=== PATIENT | male | born 1950 | race American Indian/Alaskan Native ===

== ENCOUNTER 2017-08-15 16:47 | Emergency (ER) | payer MEDICARE ==
[2017-08-15 17:09] VITALS: BP 152/80
--- NOTE | 2017-08-15 18:46 | Emergency Department Report ---
HPI - General Chief Complaint: Wound/Laceration Time Seen by Provider: 08/15/17 18:42 - HPI HPI: right third finger injury ED Past Medical Hx - Past Medical History Hx Hypertension: Yes - Surgical History Additional Surgical History: hernia repair,peptic ulcer - Social History Smoking Status: Never Smoker Substance Use Type: Alcohol - Medications Home Medications: Home Medications Medication Instructions Recorded Confirmed Last Taken Type Cephalexin [Keflex] 500 mg PO Q12HR #14 cap 08/15/17 Unknown Rx Mupirocin [Bactroban 2% OINT] 1 applic TP TID #1 tube 08/15/17 Unknown Rx ED Review of Systems ROS: Stated complaint: LAC.RT MIDDLE FINGER Other details as noted in HPI Physical Exam - Physical Exam Vital Signs: Vital Signs 08/15/17 17:07 Temperature 98.7 F Pulse Rate 53 L Respiratory 18 Rate Blood Pressure 152/80 O2 Sat by Pulse 99 Oximetry ED Course Vital Signs 08/15/17 17:07 Temperature 98.7 F Pulse Rate 53 L Respiratory 18 Rate Blood Pressure 152/80 O2 Sat by Pulse 99 Oximetry Critical care attestation.: If time is entered above; I have spent that time in minutes in the direct care of this critically ill patient, excluding procedure time. ED Disposition Clinical Impression: Finger laceration Qualifiers: Encounter type: initial encounter Finger: middle finger Damage to nail status: without damage Foreign body presence: without foreign body Laterality: right Qualified Code(s): S61.212A - Laceration without foreign body of right middle finger without damage to nail, initial encounter Disposition: DC-01 TO HOME OR SELFCARE Is pt being admited?: No Does the pt Need Aspirin: No Condition: Stable Prescriptions: Cephalexin [Keflex] 500 mg PO Q12HR #14 cap Mupirocin [Bactroban 2% OINT] 1 applic TP TID #1 tube Forms: Work/School Release Form(ED)
--- NOTE | 2017-08-15 20:32 | XRay Report ---
FINAL REPORT EXAM: XR HAND 2V RT HISTORY: laceration right hand third digit slammed finger i TECHNIQUE: 2 views right hand PRIORS: None. FINDINGS: There is acute traumatic transverse fracture tuft distal phalanx of the 3rd digit. No additional fractures are identified. No dislocation seen. Joint spaces are within normal limits. No erosive bony change identified. Carpal bones maintain normal alignment. Distal radius and ulna are intact. No radiopaque foreign bodies seen. IMPRESSION: Acute fracture tuft distal phalanx of the 3rd digit
== END 2017-08-15 19:10 | disposition home or self-care (01) ==
LOC: ED 16:47
DX: S61.212A Laceration without foreign body of right middle finger without damage to nail, initial encounter (principal); I10 Essential (primary) hypertension; W26.8XXA Contact with other sharp object(s), not elsewhere classified, initial encounter; Y93.89 Activity, other specified; Y92.89 Other specified places as the place of occurrence of the external cause; Y99.8 Other external cause status
CPT/HCPCS: 99283

== ENCOUNTER 2017-08-22 13:12 | Emergency (ER) | payer MEDICARE ==
[2017-08-22 14:22] LABS: Hematocrit 39.3 % (35.5-45.6); Hemoglobin 12.3 gm/dl (11.8-15.2); Mean Corpuscular HGB Conc 31 % (32-34); Mean Corpuscular Hemoglobin 25 pg (28-32); Mean Corpuscular Volume 79 fl (84-94); Platelet Count 202 K/mm3 (140-440); Red Blood Count 4.97 M/mm3 (3.65-5.03); Red Cell Distribution Width 15.3 % (13.2-15.2)
[2017-08-22 14:33] LABS: INR 0.95 (0.87-1.13); Partial Thromboplastin Time 27.5 Sec. (24.2-36.6)
--- NOTE | 2017-08-22 14:36 | Emergency Department Report ---
ED Palpitations HPI - General Chief Complaint: Arrhythmia/Palpitations Stated Complaint: SVT Time Seen by Provider: 08/22/17 13:54 Source: patient, EMS (verbal report received from EMS.ems notes not available at time of chart dictation), RN notes reviewed Mode of arrival: Stretcher Limitations: No Limitations - History of Present Illness Initial Comments: This is a 67-year-old male who was previously known to this provider. Patient was at a local endoscopy suite with Dr. Forrest, was going to have endoscopy, has a past medical history of GERD/reflux. Also has a past medical history of hypertension, and takes Norvasc, 10 mg as wel an CRISTAL inhibitor medication. His primary care doctor is Dr. Becerra. Patient denies a history of alcohol consumptio patient was at the endoscopy suite today, and was found to have a tachycardic heart rate to 1 54 bpm, suspicious for SVT. He was given esmolol 10 mg, then 20 mg, and was also given propofol. The patient has no complaints at this time. He specifically denies headache, neck pain, chest pain, abdominal pain, shortness of breath. Apparently, the patient had endoscopic performed, and the procedure was aborted due to patient's having a cardiac arrhythmia; supraventricular tachycardia. -: Sudden Context: other (as per history of present illness) Arrythmia History: other (none) Associated Symptoms: denies other symptoms Treatments Prior to Arrival: beta-david - Related Data Previous Rx's Medication Instructions Recorded Last Taken Type Cephalexin [Keflex] 500 mg PO Q12HR #14 cap 08/15/17 Unknown Rx Mupirocin [Bactroban 2% OINT] 1 applic TP TID #1 tube 08/15/17 Unknown Rx Allergies Allergy/AdvReac Type Severity Reaction Status Date / Time No Known Allergies Allergy Unverified 08/15/17 17:09 ED Review of Systems ROS: Stated complaint: SVT Other details as noted in HPI Comment: All other systems reviewed and negative ED Past Medical Hx - Past Medical History Previous Medical History?: Yes Hx Hypertension: Yes Hx CVA: No Additional medical history: GERD - Surgical History Past Surgical History?: Yes Additional Surgical History: hernia repair, peptic ulcer. endoscopy (08/22/17) - Social History Smoking Status: Never Smoker Substance Use Type: Alcohol - Medications Home Medications: Home Medications Medication Instructions Recorded Confirmed Last Taken Type Cephalexin [Keflex] 500 mg PO Q12HR #14 cap 08/15/17 Unknown Rx Mupirocin [Bactroban 2% OINT] 1 applic TP TID #1 tube 08/15/17 Unknown Rx ED Physical Exam - General Limitations: No Limitations General appearance: alert, in no apparent distress - Head Head exam: Present: atraumatic, normocephalic - Eye Eye exam: Present: normal appearance, EOMI. Absent: nystagmus - ENT ENT exam: Present: normal exam, normal orophraynx, mucous membranes moist, normal external ear exam - Neck Neck exam: Present: normal inspection, full ROM - Respiratory Respiratory exam: Present: normal lung sounds bilaterally. Absent: respiratory distress - Cardiovascular Cardiovascular Exam: Present: normal rhythm, bradycardia, normal heart sounds. Absent: tachycardia, irregular rhythm, systolic murmur, diastolic murmur, rubs, gallop - GI/Abdominal GI/Abdominal exam: Present: soft, normal bowel sounds. Absent: distended, tenderness, guarding, rebound, rigid, pulsatile mass - Rectal Rectal exam: Present: deferred - Extremities Exam Extremities exam: Present: normal inspection, full ROM, normal capillary refill. Absent: tenderness, pedal edema, joint swelling, calf tenderness - Back Exam Back exam: Present: normal inspection, full ROM. Absent: tenderness, CVA tenderness (R), paraspinal tenderness, vertebral tenderness - Neurological Exam Neurological exam: Present: alert, oriented X3, CN II-XII intact, normal gait, other (Extraocular movements intact. Tongue midline. No facial droop. Facial sensation intact to light touch in the V1, V2, V3 distribution bilaterally. 5 and 5 strength in 4 extremities.. Sensation is intact to light touch in 4 extremities.). Absent: motor sensory deficit - Psychiatric Psychiatric exam: Present: normal affect, normal mood - Skin Skin exam: Present: warm, dry, intact, normal color. Absent: rash ED Course Vital Signs 08/22/17 13:18 Temperature 98.3 F Pulse Rate 60 Respiratory 16 Rate - Reevaluation(s) Reevaluation #1: 08/22/17 15:30 Patient reassessed. Vital signs stable. No tachycardia noted. Laboratory studies unremarkable. Patient is medically suitable to follow up with outpatient cardiology at this time. ED Medical Decision Making - Lab Data Result diagrams: 08/22/17 14:04 08/22/17 14:04 Vital Signs 08/22/17 13:18 Temperature 98.3 F Pulse Rate 60 Respiratory 16 Rate Lab Results 08/22/17 08/22/17 Range/Units 14:04 14:04 WBC 5.6 (4.5-11.0) K/mm3 RBC 4.97 (3.65-5.03) M/mm3 Hgb 12.3 (11.8-15.2) gm/dl Hct 39.3 (35.5-45.6) % MCV 79 L (84-94) fl MCH 25 L (28-32) pg MCHC 31 L (32-34) % RDW 15.3 H (13.2-15.2) % Plt Count 202 (140-440) K/mm3 PT 13.2 (12.2-14.9) Sec. INR 0.95 (0.87-1.13) APTT 27.5 (24.2-36.6) Sec. - EKG Data -: EKG Interpreted by Me EKG shows normal: sinus rhythm - EKG Data When compared to previous EKG there are: previous EKG unavailable 08/22/17 14:35 Bradycardia, 49 bpm, normal axis, motion artifact, abnormal EKG, not consistent with a STEMI - Radiology Data Radiology results: pending, image reviewed interpreted by me: X-ray the chest, interpreted by me: No acute disease - Medical Decision Making Differential diagnosis, including but not limited to: Arrhythmia, electrolyte derangement, resolved SVT Assessment and plan: 67-year-old male with asymptomatic and resolved SVT. He is currently in sinus bradycardia. He takes Norvasc. He has no complaints at this time. His physical examination is unremarkable at this time. He specifically denies chest pain and shortness of breath. Laboratory studies are pending. Patient will need to follow up with outpatient cardiology. Critical care attestation.: If time is entered above; I have spent that time in minutes in the direct care of this critically ill patient, excluding procedure time. ED Disposition Clinical Impression: History of PSVT (paroxysmal supraventricular tachycardia) Disposition: DC-01 TO HOME OR SELFCARE Is pt being admited?: No Does the pt Need Aspirin: No Condition: Good Instructions: Supraventricular Tachycardia (ED) Additional Instructions: Continue current outpatient medications. Avoid stimulants and caffeinated beverages. Follow up with cardiology within the next 7-10 days. Return to the ER right away with new pain, worsened pain, hydration pain, fevers, chills, lethargy, irritability, projectile vomiting, change in mental status, confusion , inability to tolerate liquid feeds. Referrals: [facility] [Other] - 3-5 Days [facility] [Provider Group] - 3-5 Days [facility] [Provider Group] - 3-5 Days
--- NOTE | 2017-08-22 14:47 | XRay Report ---
AP CHEST: HISTORY: Dysrhythmia AP view of the chest demonstrates a normal mediastinal and cardiac contour with clear lungs and normal bony and soft tissue structures. IMPRESSION: Unremarkable AP chest.
[2017-08-22 14:58] LABS: BUN/Creatinine Ratio 20; Blood Urea Nitrogen 12 mg/dL (9-20); Calcium 8.9 mg/dL (8.4-10.2); Hemolysis Index 13
[2017-08-22 15:59] VITALS: BP 122/61
== END 2017-08-22 15:59 | disposition home or self-care (01) ==
LOC: ED 13:12
DX: I47.1 Supraventricular tachycardia (principal); I10 Essential (primary) hypertension; K21.9 Gastro-esophageal reflux disease without esophagitis
CPT/HCPCS: 36415; 71045; 80048; 83735; 84443; 85027; 85610; 85730; 93005; 93010; 99284